=== PATIENT | female | born 1995 | race Two or more races ===

== ENCOUNTER 2023-02-17 11:02 | Inpatient (IN) | payer OTHER ==
[~2023-02-17] VITALS: Ht 162.6 cm; Wt 56.0 kg
[~2023-02-17 11:02] MED LIST: OLAN10TA74 PO
[2023-02-17] MEDS ORDERED: OLANZapine 5 MG RAPDIS TABLET PO ONE (12:15)
[2023-02-17] MEDS ORDERED: HALOPERIDOL LACTATE 5 MG/ML VIAL IM ONE (12:45)
[2023-02-17] MEDS ORDERED: LORazepam 2 MG/ML VIAL IM ONE (12:45)
[2023-02-17] MEDS ORDERED: DiphenhydrAMINE HCL 50 MG/ML VIAL IM ONE (12:45)
[2023-02-17 13:33] LABS: BASOPHILS % (AUTO) 0.3 % (0.0-2.0); EOSINOPHILS % (AUTO) 0.1 % (1.0-6.0); HEMATOCRIT 38.4 % (36-46); HEMOGLOBIN 12.5 g/dL (12.0-16.0); LYMPHOCYTES % (AUTO) 11.3 % (22.0-44.0); MEAN CORPUSCULAR HEMOGLOBIN 30.7 pg (26.0-34.0); MEAN CORPUSCULAR HGB CONC 32.6 G/dL (31.0-37.0); MEAN CORPUSCULAR VOLUME 94 fL (80-100); MONOCYTES # (AUTO) 0.6 K/uL (0.1-1.0); MONOCYTES % (AUTO) 6.9 % (2.0-9.0); NEUTROPHILS # (AUTO) 7.2 K/uL (1.8-7.7); NEUTROPHILS % (AUTO) 81.4 % (40.0-70.0); PLATELET COUNT (AUTO) 194 K/uL (150-450); RED BLOOD CELL COUNT(AUTO) 4.09 MIL/uL (4.00-5.20); RED CELL DISTRIBUTION WIDTH 13.8 % (11.5-14.5)
[2023-02-17 13:42] LABS: ANION GAP 10 mmol/L (8-16); CALCIUM, TOTAL 8.7 mg/dL (8.8-10.5); CARBON DIOXIDE 24 mmol/L (22-29); CHLORIDE 105 mmol/L (98-107); CREATININE 0.71 mg/dL (0.60-1.30); GLOMERULAR FILTR. RATE CALC > 60 mL/min (>60); GLUCOSE,RANDOM 84 mg/dL (70-110); POTASSIUM 3.5 mmol/L (3.5-5.1); SODIUM SERUM 139 mmol/L (136-145)
[2023-02-17 13:47] LABS: ALANINE AMINOTRANSFERASE 24 U/L (12-78); ALBUMIN 3.6 g/dL (3.4-5.0); ALKALINE PHOSPHATASE 60 U/L (46-116); ASPARTATE AMINOTRANSFERASE 23 U/L (15-37); TOTAL PROTEIN, SERUM 6.8 g/dL (6.4-8.2)
[2023-02-17 18:03] LABS: COVID AG,FIA SOURCE NASAL SWAB
[2023-02-18] MEDS ORDERED: LORazepam 2 MG/ML VIAL ONE (11:44)
[2023-02-18] MEDS ORDERED: HALOPERIDOL LACTATE 5 MG/ML VIAL IM ONE (11:45)
[2023-02-18] MEDS ORDERED: DiphenhydrAMINE HCL 50 MG/ML VIAL ONE (11:45)
[2023-02-18] MEDS ORDERED: HALOPERIDOL LACTATE 5 MG/ML VIAL ONE (11:45)
[2023-02-18] MEDS ORDERED: LORazepam 2 MG/ML VIAL IM ONE (11:45)
[2023-02-18] MEDS ORDERED: DiphenhydrAMINE HCL 50 MG/ML VIAL IM ONE (11:45)
[2023-02-18 20:03] VITALS: RESP 18
[2023-02-18] MEDS ORDERED: HALOPERIDOL 5 MG TABLET PO PRN (21:15)
[2023-02-18] MEDS: LORazepam 2 MG TABLET PO PRN (21:15)
[2023-02-18] MEDS: ZOLPIDEM TARTRATE 10 MG TABLET PO PRN (21:16)
[2023-02-19 08:24] VITALS: BP 100/61; PULSE 97; RESP 17; TEMP 97.5; O2SAT 97
[2023-02-19] MEDS: LORazepam 2 MG TABLET PO PRN ×2 (09:31→20:29)
[2023-02-19] MEDS ORDERED: HALOPERIDOL LACTATE 5 MG/ML VIAL ONE (10:56)
[2023-02-19] MEDS ORDERED: LORazepam 2 MG/ML VIAL ONE (10:56)
[2023-02-19] MEDS ORDERED: DiphenhydrAMINE HCL 50 MG/ML VIAL ONE (10:57)
[2023-02-19] MEDS ORDERED: DiphenhydrAMINE HCL 50 MG/ML VIAL IM ONE (11:00)
[2023-02-19] MEDS ORDERED: HALOPERIDOL LACTATE 5 MG/ML VIAL IM ONE (11:00)
[2023-02-19] MEDS ORDERED: LORazepam 2 MG/ML VIAL IM ONE (11:00)
[2023-02-19] MEDS: OLANZapine 5 MG TABLET PO SCH (11:08)
[2023-02-19] MEDS ORDERED: MAG HYDROX/AL HYDROX/SIMETH ES 30 ML SUSPENSION UDCUP PO PRN (14:30)
[2023-02-19] MEDS ORDERED: ACETAMINOPHEN 325 MG TABLET PO PRN (14:30)
[2023-02-19] MEDS ORDERED: IBUPROFEN 400 MG TABLET PO PRN (14:30)
[2023-02-19] MEDS ORDERED: MAGNESIUM HYDROXIDE SUSPENSION 30 ML UDCUP PO PRN (14:30)
[2023-02-19] MEDS ORDERED: ALBUTEROL SULFATE HFA 90 MCG/PUFF 8 GM INHALER IH PRN (14:30)
[2023-02-19] MEDS ORDERED: LOPERAMIDE HCL 2 MG CAPSULE PO PRN (14:30)
[2023-02-19] MEDS ORDERED: ONDANSETRON HCL 4 MG TABLET PO PRN (14:30)
[2023-02-19] MEDS ORDERED: CloNIDine HCL 0.1 MG TABLET PO PRN (14:30)
[2023-02-19] MEDS ORDERED: NICOTINE 14 MG/24 HOUR PATCH TD PRN (14:30)
[2023-02-19] MEDS ORDERED: GuaiFENesin/D-METHORPHAN [SUGAR-FREE] 200-20MG/10 ML SYRUP UDCUP PO PRN (14:30)
[2023-02-19] MEDS ORDERED: DOCUSATE SODIUM 100 MG CAPSULE PO PRN (14:30)
[2023-02-19] MEDS ORDERED: PETROLATUM,WHITE 28 GM JELLY TP PRN (14:30)
[2023-02-19] MEDS: ZOLPIDEM TARTRATE 10 MG TABLET PO PRN (20:29)
[2023-02-19] MEDS ORDERED: OLANZapine 10 MG TABLET PO SCH (21:00)
[2023-02-19 21:10] VITALS: BP 100/63; PULSE 101; RESP 18; TEMP 98.2; O2SAT 98
[2023-02-20] MEDS: OLANZapine 5 MG TABLET PO SCH (08:14)
[2023-02-20 08:33] VITALS: BP 100/60; PULSE 65; RESP 17; TEMP 97.7; O2SAT 96
[2023-02-20] MEDS ORDERED: OLAN5TAB52 PO (10:11)
[2023-02-20] MEDS ORDERED: HALO5TAB23 PO ×4 (10:15→10:41)
[2023-02-20] MEDS ORDERED: HALOPERIDOL 5 MG TABLET PO PRN (10:30)
[2023-02-20] MEDS ORDERED: HALO2ORA11 PO (10:44)
== END 2023-02-20 11:30 | disposition home or self-care (01) | DRG 885 ==
LOC: EMS 11:03 → B3A 02-18 10:40
PROVIDERS: ADMIT Psychiatry & Neurology Child & Adolescent Psychiatry; ATTEND Psychiatry & Neurology Child & Adolescent Psychiatry
DX: F20.9 Schizophrenia, unspecified (principal); Z20.822 Contact with and (suspected) exposure to COVID-19; F84.0 Autistic disorder
CPT/HCPCS: 80053; 85025; 99285; G0480; J1200; J1630; J2060